=== PATIENT | female | born 2005 | race Caucasian/White ===

== ENCOUNTER 2023-08-21 14:51 | Outpatient (CLI) | payer MEDICAID, SELFPAY ==
--- NOTE | 2023-08-21 14:57 | US_ITS ---
WS: [id number] LIMITED OBSTETRICAL ULTRASOUND HISTORY: SUPERVISION OF 1ST -SECOND TRIMESTER/DATING COMPARISON: None available. Presentation: Breech. Cervix: Closed and normal length. Placenta: Anterior, no previa or abruption. Grade: 0 HEART: FHR of 150 BPM. measurements: BPD = 3.8 cm = 17w4d; HC = 13.7 cm = 17w1d; AC = 11.4 cm = 17w2d; FL = 2.2 cm = 16w5d; Normal amniotic fluid. EFW: 178.2 g; 64.1 % AGA by ultrasound: 17w1d ARSENIO by ultrasound: 01/28/2024 US/US OB limited [id number] IMPRESSION: 1. Single intrauterine gestation of 17w1d with an ARSENIO of 01/28/2024. 2. Normal cardiac activity.
== END 2023-08-21 14:52 | disposition home or self-care (01) ==
LOC: RAD 14:51
PROVIDERS: PCP Family Medicine; Visit Provider Family Medicine
DX: Z34.02 Encounter for supervision of normal first pregnancy, second trimester (principal); Z3A.17 17 weeks gestation of pregnancy
CPT/HCPCS: 76815

== ENCOUNTER 2023-09-11 12:00 | Outpatient (CLI) | payer MEDICAID, SELFPAY ==
--- NOTE | 2023-09-11 12:02 | USR_ITS ---
PROCEDURE INFORMATION: Exam: US After First Trimester, Transabdominal Exam date and time: 09/11/2023 12:23 PM Age: 18 years old Clinical indication: Screening exam; Routine US, uterus; Additional info: Anatomy check/second trimester LABS AND CLINICAL REPORTS: Gestational age (Established): 19 w 5 d Estimated due date (Established): 01/31/2024 TECHNIQUE: Imaging protocol: Real-time transabdominal obstetrical ultrasound of the maternal pelvis and a second or third trimester with image documentation. COMPARISON: US OB limited [id number] 08/21/2023 3:13 PM FINDINGS: Gestation: Single viable IUP heart rate: 145 bpm presentation and position: Breech Placenta: Unremarkable. No subchorionic bleed. Placenta is anterior. Amniotic fluid (Qualitative): Amniotic fluid is normal for gestational age. Amniotic fluid index: ANN is 12.96 cm. ANATOMY: midline falx: Normal cerebellum: Normal lateral ventricles: Normal cisterna magna: Normal choroid plexus: Normal face: Upper lip is normal heart four-chamber view, heart size and position: Normal heart right ventricular outflow tract: Normal heart left ventricular outflow tract: Normal kidneys: Normal stomach: Normal urinary bladder: Normal spine: Normal Umbilical cord and insertion: Unremarkable. upper limbs: Normal lower limbs: Normal external genitalia: Normal BIOMETRY: Gestational age (AUA): 19 weeks 5 days Estimated due date (AUA): 01/31/2024 Estimated weight: 317.4 g. EFW by AC, BPD, FL, HC, [place] 1985 54th percentile Biparietal diameter (BPD): 4.43 cm. EGA (BPD) is 19 w 3 d. 36.2 % percentile Head circumference (HC): 16.85 cm. EGA (HC) is 19 w 3 d. 31.8 % percentile Abdominal circumference (AC): 14.79 cm. EGA (AC) is 20 w 0 d. 56.8 % percentile Femur length (FL): 3.14 cm. EGA (FL) is 19 w 5 d. 43.9 % percentile HC/AC: 1.14. (Normal range: 1.08 - 1.26) FL/HC: 18.64. (Normal range: 16.6 - 19.37) FL/BPD: 70.88 FL/AC: 21.23 MATERNAL: Uterus: Unremarkable. Cervix: Cervical length is normal. Cervical os is closed. Right ovary/adnexa: Obscured by lack of adequate acoustic window. Left ovary/adnexa: Obscured by lack of adequate acoustic window. Intraperitoneal space: No intraperitoneal free fluid. US/US OB >= 14 weeks fetus [id number] IMPRESSION: Viable IUP at 19 weeks 5 days. No worrisome abnormality noted.
== END 2023-09-11 12:01 | disposition home or self-care (01) ==
LOC: RAD 12:00
PROVIDERS: PCP Family Medicine; Visit Provider Family Medicine
DX: Z36.2 Encounter for other antenatal screening follow-up (principal)
CPT/HCPCS: 76805

== ENCOUNTER 2023-11-10 15:38 | Outpatient (CLI) | payer MEDICAID, SELFPAY ==
[2023-11-10 15:49] VITALS: BP 118/75; PULSE 101; RESP 16; TEMP 36.4
[2023-11-10 16:01] VITALS: BMI 27.4
[2023-11-10 16:04] VITALS: BP 120/72; PULSE 97; RESP 16
[2023-11-10 16:20] VITALS: BP 124/77; PULSE 102
[2023-11-10 16:34] VITALS: BP 118/73; PULSE 102
[2023-11-10 16:51] VITALS: BP 125/63; PULSE 109
[2023-11-10 17:04] VITALS: BP 125/66; PULSE 95
== END 2023-11-10 17:19 | disposition home or self-care (01) ==
LOC: OPOB 15:46 → OBGYN 15:46
PROVIDERS: PCP Family Medicine; Visit Provider Family Medicine
DX: O26.899 Other specified pregnancy related conditions, unspecified trimester (principal); Z3A.00 Weeks of gestation of pregnancy not specified; R10.9 Unspecified abdominal pain; Z91.81 History of falling
CPT/HCPCS: 59025; 99211

== ENCOUNTER 2023-12-24 14:55 | Outpatient (CLI) | payer MEDICAID, SELFPAY ==
[2023-12-24] VITALS (14 sets, daily range): BP systolic 96–123; BP diastolic 52–81; PULSE 78–104; RESP 16; TEMP 36.7; BMI 28.3
[2023-12-24 15:38] LABS: Bilirubin Urine Negative (Negative); Blood Urine Negative (Negative); Glucose Urine UA Negative (Normal); Ketones Urine 1+ (Negative); Leukocyte Esterase Urine 1+ (Negative); Nitrate Urine Negative (Negative); Protein Urine Negative (Negative); Specific Gravity, Urine 1.015 (1.005-1.030); Urine Appearance Clear (CLEAR); Urobilinogen Urine 0.2 mg/dL (Negative); pH Urine 6.5 (5-7)
[2023-12-24 15:40] LABS: Bacteria Urine 1+ /hpf; Hyaline Casts Urine 2.05 /lpf; WBC Urine 21-50 /hpf (0-5)
[2023-12-24 15:45] LABS: Urine Color Yellow (Yellow)
[2023-12-24 15:46] LABS: Add Urine Culture? Yes
[2023-12-24] MEDS: ondansetron 2 mg/ML SDV 2 mL 4 MG IVP (17:51)
[2023-12-24] MEDS: lactated ringers 1,000 ML 999 ML IV (17:51)
--- NOTE | 2023-12-24 18:36 | PM.OBTRLD ---
OB L&D Triage Visit Information: Date of evaluation: 12/24/23 Comments/Additional reason(s) for visit: 18 yo at 34w4d presenting for contractions. Started yesterday while out at a christian event and were very irregular and mild. Continued irregularly overnight but she was able to sleep. This morning increased some at about 8:30am and started tracking them. Increased to about every 3-5 minutes and so she called the office to see if she needed to come in. This morning pain was 3-4/10 and is now 8-9/10. course has been uncomplicated other than influenza B infection about 2 weeks ago. Denies LOF, vaginal bleeding, no change in vaginal discharge. Good movement. She does report some nausea but otherwise has been feeling her normal self. Denies fevers. Reports she had fully recovered from influenza B symptoms. Evaluation: Baseline heart rate: 135 Variability: Moderate (11-25) monitor accelerations: Present 15x15 station: -2 Laboratory results: Laboratory Tests 12/24/23 15:15 Urine Color Yellow Urine Appearance Clear Urine pH 6.5 Ur Specific Gravit y 1.015 Urine Protein Negative Urine Glucose (UA) Negative Urine Ketones 1+ H Urine Blood Negative Urine Nitrate Negative Urine Bilirubin Negative Urine Urobilinogen 0.2 Ur Leukocyte Lily ase 1+ A Urine RBC 3-5 Urine WBC 21-50 H Ur Squamous Epith Cells 6-10 Amorphous Sediment Not Reportable Urine Bacteria 1+ H Hyaline Casts 2.05 Vital signs: Vital Signs - 24 hr 12/24/23 15:13 12/24/23 15:34 12/24/23 15:34 Pulse Rate 104 H 78 Blood Pressure 109/69 97/56 12/24/23 15:54 12/24/23 15:54 12/24/23 16:15 Pulse Rate 82 Blood Pressure 118/72 97/52 12/24/23 16:15 12/24/23 16:33 12/24/23 16:33 Pulse Rate 78 93 Blood Pressure 123/81 12/24/23 16:54 12/24/23 16:54 12/24/23 17:19 Pulse Rate 101 H Blood Pressure 117/74 114/64 12/24/23 17:19 12/24/23 17:33 12/24/23 17:33 Pulse Rate 96 98 Blood Pressure 122/74 12/24/23 17:53 12/24/23 17:53 12/24/23 18:13 Pulse Rate 81 Blood Pressure 102/67 103/59 12/24/23 18:13 12/24/23 18:34 12/24/23 18:34 Pulse Rate 83 90 Blood Pressure 99/63 Coding Level of Care Code Acute Code for Chg Fwd
== END 2023-12-24 19:15 | disposition home or self-care (01) ==
LOC: OPOB 15:01 → OBGYN 15:01
PROVIDERS: PCP Family Medicine; Visit Provider Family Medicine
DX: O26.899 Other specified pregnancy related conditions, unspecified trimester (principal); Z3A.00 Weeks of gestation of pregnancy not specified; R10.9 Unspecified abdominal pain
CPT/HCPCS: 59025; 81001; 87086; 99211; J2405; J7120

== ENCOUNTER 2023-12-29 17:55 | Outpatient (CLI) | payer MEDICAID, SELFPAY ==
[2023-12-29 17:55] VITALS: BMI 28.9
[2023-12-29 18:09] VITALS: BP 118/78; PULSE 94
[2023-12-29 18:24] VITALS: BP 106/68; PULSE 91
[2023-12-29 18:27] LABS: Bilirubin Urine Negative (Negative); Blood Urine Negative (Negative); Glucose Urine UA 3+ (Normal); Ketones Urine Trace (Negative); Leukocyte Esterase Urine Negative (Negative); Nitrate Urine Negative (Negative); Protein Urine Trace (Negative); Urine Appearance Clear (CLEAR); Urine Color Yellow (Yellow)
[2023-12-29 18:32] LABS: Actim Prom Negative; Add Urine Microscopic? YES
[2023-12-29 18:33] LABS: Specific Gravity, Urine 1.034 (1.005-1.030); UA Slide Review UA Slide Review Perf
[2023-12-29 18:40] VITALS: BP 106/75; PULSE 105
[2023-12-29 18:42] LABS: UA Manual Slide Review YES
[2023-12-29 18:43] LABS: Bacteria Urine TRACE /hpf; Calcium Oxalate Crystals Urine 15-25 /hpf; Hyaline Casts Urine 0-4 /lpf; Mucus Urine TRACE /hpf; RBC Urine 0-4 /hpf (0-2); Transitional Epi Cells Urine 0-4 /hpf; WBC Urine 0-4 /hpf (0-5)
[2023-12-29 18:44] LABS: Add Urine Culture? No
[2023-12-29 18:53] VITALS: BP 106/75; PULSE 105
[2023-12-29 19:12] LABS: Nitrazine Paper, PH Negative
== END 2023-12-29 18:53 | disposition home or self-care (01) ==
LOC: OPOB 18:01 → OBGYN 18:02
PROVIDERS: PCP Family Medicine; Visit Provider Family Medicine
DX: O26.899 Other specified pregnancy related conditions, unspecified trimester (principal); Z3A.00 Weeks of gestation of pregnancy not specified; N89.8 Other specified noninflammatory disorders of vagina
CPT/HCPCS: 59025; 81001; 83986; 84112; 99211

== ENCOUNTER 2024-01-06 18:09 | Outpatient (CLI) | payer MEDICAID, SELFPAY ==
[2024-01-06 18:26] VITALS: BP 129/78; PULSE 97
[2024-01-06 18:33] VITALS: RESP 16; BMI 29.6
[2024-01-06 18:41] VITALS: BP 107/69; PULSE 85
[2024-01-06 18:50] LABS: Nitrazine Paper, PH Negative
[2024-01-06 18:55] VITALS: BP 107/69; PULSE 81
[2024-01-06 19:10] VITALS: BP 112/72; PULSE 81
[2024-01-06 19:26] VITALS: BP 108/66; PULSE 82
== END 2024-01-06 20:00 | disposition home or self-care (01) ==
LOC: OPOB 18:15 → OBGYN 18:16
PROVIDERS: PCP Family Medicine; Visit Provider Family Medicine
DX: O26.899 Other specified pregnancy related conditions, unspecified trimester (principal); Z3A.00 Weeks of gestation of pregnancy not specified; R10.9 Unspecified abdominal pain
CPT/HCPCS: 59025; 83986; 99211

== ENCOUNTER 2024-01-18 17:35 | Outpatient (CLI) | payer MEDICAID, SELFPAY ==
[2024-01-18 17:35] VITALS: BMI 30.2
[2024-01-18 18:01] VITALS: BP 132/82; PULSE 93
[2024-01-18 18:16] VITALS: BP 126/85; PULSE 90
[2024-01-18 18:24] LABS: Actim Prom Negative
[2024-01-18 18:31] VITALS: BP 119/77; PULSE 88
[2024-01-18 18:33] VITALS: BP 119/77; PULSE 88
== END 2024-01-18 18:34 | disposition home or self-care (01) ==
LOC: OPOB 17:48 → OBGYN 17:48
PROVIDERS: PCP Family Medicine; Visit Provider Family Medicine
DX: O26.899 Other specified pregnancy related conditions, unspecified trimester (principal); Z3A.00 Weeks of gestation of pregnancy not specified; N89.8 Other specified noninflammatory disorders of vagina
CPT/HCPCS: 59025; 83986; 84112; 99211

== ENCOUNTER 2024-01-24 16:40 | Outpatient (CLI) | payer MEDICAID, SELFPAY ==
[2024-01-24 17:10] LABS: Actim Prom Negative
[2024-01-24 17:20] VITALS: RESP 16
== END 2024-01-24 17:21 | disposition home or self-care (01) ==
LOC: OPOB 16:42 → OBGYN 16:43
PROVIDERS: PCP Family Medicine; Visit Provider Family Medicine
DX: O26.899 Other specified pregnancy related conditions, unspecified trimester (principal); Z3A.00 Weeks of gestation of pregnancy not specified; N89.8 Other specified noninflammatory disorders of vagina
CPT/HCPCS: 59025; 84112; 99211

== ENCOUNTER 2024-01-25 02:30 | Inpatient (IN) | payer MEDICAID, SELFPAY ==
[2024-01-25] VITALS (57 sets, daily range): BP systolic 112–146; BP diastolic 57–104; PULSE 68–141; RESP 16–18; TEMP 36–37.2; O2SAT 98–99; BMI 30.9
[2024-01-25 02:35] LABS: Basophils # 0.1 10^3/uL (0.0-0.1); Basophils % 0.3 %; Eosinophils # 0.2 10^3/uL (0.0-0.8); Eosinophils % 1.4 %; Hematocrit 35.1 % (36-47); Lymphocytes # 3.2 10^3/uL (1.5-6.5); Lymphocytes % 21.7 %; Mean Corpuscular HGB Conc 32.2 g/dL (30-55); Mean Corpuscular Hemoglobin 26.7 pg (27-33); Mean Platelet Volume 10.1 fL (7.4-10.4); Monocytes % 7.1 %; Neutrophils # 9.93 10^3/uL (1.8-8.0); Neutrophils % 68.2 %; Nucleated Red Blood Cells % 0 %; Platelet Count 222 10^3/cmm (157-399); Red Blood Count 4.23 10^6/uL (3.85-5.65); Red Cell Distribution Width 14.1 % (12.1-15.1); White Blood Count 14.58 10^3/uL (4.5-13.0)
[2024-01-25] MEDS: acetaminophen 325 mg Tablet 650 MG PO (05:34)
--- NOTE | 2024-01-25 07:21 | P.HP_ITS ---
Providers/Chief Complaint 2 Admitting Physician: Ashley Cartagena DO Primary Care Provider: Ashley Cartagena DO Chief Complaint: Poss. SROM HPI CONSERVATION OR HERITAGE ARCHITECT History of Present Illness Lois Richey is a 18 year old female at 39w1d by sure LMP c/w 16wk US without significant PMHx presenting for for SROM at home at 11:58pm. States she woke up having to pee and got up to go the bathroom and after she peed she had a large gush of fluid and continued with gushes while walking back to the bed. Reports occasional contractions prior to arrival, denies vaginal bleeding, normal movement course uncomplicated. Present Details : 1 Para: 0 Labs Blood type OB HPI: O (+) positive Rubella: Immune RPR: Negative GBS: Negative HBsAG: Negative Other Lab Information: HCV Ab negative HIV NR Chlamydia/Gonorrhea negative Initial H/H 13.3/38.9 Hemoglobin A1c 5.0 UCx with lactobacillus- repeat wnl 1hr GTT passed- 139 3rd trimester H/H 12.1/35.3 Review of Systems 2 Const: Denies: fever(s) or chills Card: Denies: chest pain or palpitations Resp: Denies: dyspnea or productive cough Skin/Breast: Denies: rash or pruritus Medications/Allergies Home Medications Medication Instructions Recorded Confirmed Last Taken Type vit no.133-ferrous 1 tab PO DAILY 01/18/24 01/25/24 01/24/24 History fumarate 28 mg-folic acid 800 mcg tablet () Allergies Allergy/AdvReac Type Severity Reaction Status Date / Time nicotine Allergy Unknown ADR-Itching Verified 01/25/24 02:00 Penicillins Allergy HIVES Verified 01/25/24 02:00 PFSH CONSERVATION OR HERITAGE ARCHITECT 2 PFSH: Social History Smoking and tobacco/nicotine status: never used tobacco/nicotine History History History 2 1 Term 0 0 Miscarriages/Ectopic 0 Living Children 0 Vitals/I&O/Wt Last Vital Signs Temp 97.9 F 01/25/24 06:07 Pulse 76 01/25/24 06:23 BP 125/87 01/25/24 06:23 O2 Del Method Room Air 01/25/24 03:04 Weight last 48 hrs Weight 169 lb Physical Exam 2 Const: COMMON NORMALS: no acute distress, healthy appearing and alert Resp: COMMON NORMALS: normal respiratory effort, No retractions and clear to auscultation bilaterally Cardio: COMMON NORMALS: regular rate, regular rhythm, S1 normal heart sound present, S2 normal heart sound present and No murmurs present (Cardio) : OTHER: Gravid S=D Vertex on admission per RN Extremity: NARRATIVE EXTREMITY EXAM: Trace LE edema pitting Data 01/25/24 02:17 Results Labs OB ([facility]): 2 Obstetrics US 08/21/23 Blood Type O Positive 01/25/24 Antibody Screen Negative 01/25/24 Hct 35.1 % (36-47) L 01/25/24 Hgb 11.30 g/dL (12.4-14.8) L 01/25/24 Rho(D) Type Rh positive 01/25/24 Plt Count 222 10^3/cmm (157-399) 01/25/24 Micro Urine Specimen 12/24/23 A&P Assessment and plan (1) Spontaneous rupture of amniotic membranes: Plan 18yo at 39w1d admitted for SROM at term. Category I FHT. Routine CBC, Blood typing. Intermittent EFM as long as Category I. Expectant management at this time- discussed SROM with patient and monitoring for progressive dilation and effacement. Consider addition of Pitocin augmentation if labor progress slows. Initially has made change from 2/75/0 to 3/80/0. May have epidural if desired, fentanyl protocol. Attestations 2 Medical Necessity Statement*: Lois Richey's hospital stay will require greater than 2 midnights for labor and delivery and care. Coding Level of Care Code Acute Code for Chg Fwd Diagnoses Spontaneous rupture of amniotic membranes
[2024-01-25] MEDS: fentaNYL 50 mcg/mL INJ 2mL IVP ×2 (10:52→12:45)
--- NOTE | 2024-01-25 22:08 | P.PCNOB_ITS ---
Delivery Note: Date of delivery: January 25, 2024 Pre-delivery diagnoses: Spontaneous Rupture of Membranes Term Post-delivery diagnoses: Term delivery of viable male Procedure: Spontaneous Vaginal Delivery Delivering Physician: Ashley Cartagena DO Estimated blood loss (mL): 200 Pre-Delivery Course: Admitted for SROM at 11:58 pm on 01/24/24 at home. She was expectantly managed with Category I FHT throughout. She coped well with pain and received 2 doses of fentanyl for pain control. She progressed steadily to complete at 3:48pm on 01/25/24. Delivery: Patient progressed to complete. Patient placed in lithotomy position. Patient pushed with adequate effort however with very slow descent. After approximately 3 hours of pushing, due to maternal fatigue, discussion regarding vacuum assisted delivery began. Informed consent provided and patient requested vacuum assistance. Peds broadcast operations engineer and back-up- Dr. Haskins was called and began en route. Category I FHT was noted to continue. At 1947 vacuum was applied with noted descent with each push. Subsequently vacuum popped off 3 different times and vacuum was discontinued at 1952. Noted to continue with category I FHT and patient continued to push. Head delivered in OA position, no nuchal cord was present. Shoulders delivered easily and rest of body delivered with gentle traction with no anesthesia. Mouth and nares bulb suctioned. placed on maternal abdomen. noted to be vigorous with spontaneous cry with routine stimulation. Cord clamped and cut after 1.5 minute delay. Placenta spontaneously delivered and noted to be intact. Pitocin started. Fundus was noted to be firm with massage. The vagina and cervix were inspected and midline 2nd degree continuous with bilateral 1st degree labial lacerations were noted. Left labial 1st degree and 2nd degree lacerations repaired with 3-0 Vicryl. Right labial laceration noted to be hemostatic and patient declined repair. Fundus was again noted to be firm. Male born at 2107 with Apgars 7/9 weighing 9lb 14oz and measuring 21.5 in length, 14.25 in head circumference, 15.25 chest circumference Placenta noted to be intact with centrally inserted umbilical cord and 3 vessels Complications: Maternal none none History History History 1 Term 0 0 Miscarriages/Ectopic 0 Living Children 0 A&P Assessment and plan (1) Spontaneous vaginal delivery: Coding Level of Care Code Acute Code for Chg Fwd Diagnoses Spontaneous vaginal delivery O80
[2024-01-25] MEDS: calcium carbonate 500 mg Chew Tablet 1000 MG PO (23:00)
[2024-01-26] VITALS (23 sets, daily range): BP systolic 101–133; BP diastolic 61–82; PULSE 96–129; RESP 13–17; TEMP 36.6–37.2; O2SAT 98–100
[2024-01-26] MEDS: oxytocin 30 UNIT/500 ML BAG 600 UNIT IV (01:00)
[2024-01-26] MEDS: dextrose 5%-lactated ringers 1,000 ML 125 ML IV (01:00)
--- NOTE | 2024-01-26 07:00 | PM.OBGYPN ---
SPECIAL SERVICES DIRECTOR Subjective Subjective: Interval history: Doing well overnight. Bleeding has been decreasing. Very sore, but overall pain well controlled. She is not wanting to take pain medication if she can avoid it but does hurt to move much. Has voided without issue. Was able to eat last night without issue. Labor: Station: +1 Amniotic Membrane Status: Ruptured Monitor Mode: Palpation Contraction Pattern: Regular Vitals/I&O/Wt Last Vital Signs Temp 97.8 F 01/27/24 20:55 Pulse 96 01/27/24 20:55 Resp 16 01/27/24 20:55 BP 139/79 01/27/24 20:55 Pulse Ox 99 01/27/24 20:55 O2 Del Method Room Air 01/27/24 20:50 Physical Exam Const: COMMON NORMALS: no acute distress, healthy appearing and alert Resp: COMMON NORMALS: normal respiratory effort, No retractions and clear to auscultation bilaterally AUSCULTATION: clear to auscultation bilaterally Cardio: COMMON NORMALS: regular rate, regular rhythm, S1 normal heart sound present, S2 normal heart sound present and No murmurs present (Cardio) RATE: regular rate RHYTHM: regular rhythm HEART SOUNDS: S1 normal heart sound present and S2 normal heart sound present : OTHER: Uterine fundus firm and at the umbilicus Extremity: NARRATIVE EXTREMITY EXAM: Trace LE edema pitting Neuro: SENSORIUM/ORIENTATION: Yes alert Data 01/26/24 09:25 A&P Assessment and plan (1) Spontaneous vaginal delivery: PPD#1 s/p vacuum assisted vaginal delivery. Encourage ambulation. Routine H/H today. Normal diet. Scheduled ibuprofen with tylenol PRN. Attestations Medical Necessity Statement*: Lois Richey's hospital stay will require greater than 2 midnights for labor and delivery and care. Coding Level of Care Code Acute Code for Chg Fwd Diagnoses Spontaneous vaginal delivery O80
--- NOTE | 2024-01-26 07:04 | PM.OBGYPN ---
RIVETER PNEUMATIC Subjective Labor: Station: +1 Amniotic Membrane Status: Ruptured Monitor Mode: Palpation Contraction Pattern: Regular Vitals/I&O/Wt Last Vital Signs Temp 98.9 F 01/26/24 06:00 Pulse 110 H 01/26/24 06:00 Resp 16 01/26/24 06:00 BP 118/78 01/26/24 06:00 Pulse Ox 99 01/26/24 00:23 O2 Del Method Room Air 01/25/24 03:04 01/25/24 01/26/24 01/26/24 22:59 06:59 14:59 Intake Total 500 / 500 Balance 500 / 500 Weight last 48 hrs Weight 169 lb Data 01/26/24 09:25 Attestations Medical Necessity Statement*: Lois Richey's hospital stay will require greater than 2 midnights for labor and delivery and care. Coding Level of Care Code Acute Code for Chg Fwd
[2024-01-26] MEDS: ibuprofen 800 mg tablet PO ×3 (09:11→20:52)
[2024-01-26] MEDS: PRENATAL VIT NO.130/IRON/FOLIC 1 EACH TABLET PO (09:11)
[2024-01-26 09:37] LABS: Hematocrit 29.5 % (36-47); Mean Corpuscular HGB Conc 32.5 g/dL (30-55); Mean Corpuscular Hemoglobin 26.7 pg (27-33); Mean Corpuscular Volume 82.2 fl (85-98); Mean Platelet Volume 10.1 fL (7.4-10.4); Platelet Count 217 10^3/cmm (157-399); Red Blood Count 3.59 10^6/uL (3.85-5.65); Red Cell Distribution Width 14.5 % (12.1-15.1); White Blood Count 25.79 10^3/uL (4.5-13.0)
--- NOTE | 2024-01-26 09:43 | PC.NURSE ---
This nurse called Dr. Cartagena on 01/26/24 @5280 to let her know pt lab results, physical assessment, and that pt had a high HR. She gave orders to recheck pulse in 1hr and have pt PO hydrate.
[2024-01-27] MEDS: ibuprofen 800 mg tablet PO ×2 (08:38→20:48)
[2024-01-27] MEDS: PRENATAL VIT NO.130/IRON/FOLIC 1 EACH TABLET PO (08:38)
[2024-01-27] MEDS: docusate sodium 100 mg Capsule PO ×2 (08:38→18:42)
[2024-01-27 10:30] VITALS: BP 111/70; PULSE 93; RESP 16; TEMP 36.6; O2SAT 99
[2024-01-27] MEDS: ferrous sulfate EC 325 mg Tablet PO (11:12)
--- NOTE | 2024-01-27 13:28 | PM.OBGYDC ---
Discharge Providers RADIOLOGY CLERK Date of Admission: 01/25/24 02:30 Date of Discharge: 01/29/24 Attending Provider at Admission: Ashley Cartagena DO Attending Provider at Discharge: Ashley Cartagena DO Primary Care Provider: Ashley Cartagena DO Diagnoses at Discharge Discharge Diagnosis (1) Vacuum extraction, delivered, current hospitalization: Status: Acute (2) Anemia: Status: Acute Reason for Visit Reason for Visit: Poss. SROM Hospital Course Hospital Course Pre-Delivery Course: Admitted for SROM at 11:58 pm on 01/24/24 at home. She was expectantly managed with Category I FHT throughout. She coped well with pain and received 2 doses of fentanyl for pain control. She progressed steadily to complete at 3:48pm on 01/25/24. Delivery: Patient progressed to complete. Patient placed in lithotomy position. Patient pushed with adequate effort however with very slow descent. After approximately 3 hours of pushing, due to maternal fatigue, discussion regarding vacuum assisted delivery began. Informed consent provided and patient requested vacuum assistance. Peds regional sales executive and back-up- Dr. Haskins was called and began en route. Category I FHT was noted to continue. At 1947 vacuum was applied with noted descent with each push. Subsequently vacuum popped off 3 different times and vacuum was discontinued at 1952. Noted to continue with category I FHT and patient continued to push. Head delivered in OA position, no nuchal cord was present. Shoulders delivered easily and rest of body delivered with gentle traction with no anesthesia. Mouth and nares bulb suctioned. placed on maternal abdomen. Infant noted to be vigorous with spontaneous cry with routine stimulation. Cord clamped and cut after 1.5 minute delay. Placenta spontaneously delivered and noted to be intact. Pitocin started. Fundus was noted to be firm with massage. The vagina and cervix were inspected and midline 2nd degree continuous with bilateral 1st degree labial lacerations were noted. Left labial 1st degree and 2nd degree lacerations repaired with 3-0 Vicryl. Right labial laceration noted to be hemostatic and patient declined repair. Fundus was again noted to be firm. Male born at 2107 with Apgars 7/9 weighing 9lb 14oz and measuring 21.5 in length, 14.25 in head circumference, 15.25 chest circumference Placenta noted to be intact with centrally inserted umbilical cord and 3 vessels Complications: Maternal none none course: Patient underwent vacuum assisted vaginal delivery on 01/25/24. course was uncomplicated. Following delivery patient ambulated well, tolerated a normal diet without nausea or vomiting. Pain was well on PO medications, well exclusively, no leg/calf pain, no calf/leg swelling, normal urination, passing gas and normal bowel movements. Vaginal bleeding thin lochia and decreasing. labs significant for hemoglobin of 9.6g/dL down from 11.3g/dL on admission. She is started on iron supplementation once daily and will be continued on this at home on discharge. Follow-up planned for 2 and 6 weeks . Warning signs for endometritis, pre-eclampsia, DVT/PE, mastitis were reviewed, discussed additional warning signs including increased vaginal bleeding, worsening abdominal pain. Pelvic rest and activity precautions reviewed as well. She is discharged on 01/27/24 in stable condition. Information Peripartum Data: Delivery Method: Vaginal Physical Exam Const: COMMON NORMALS: no acute distress, healthy appearing and alert Resp: COMMON NORMALS: normal respiratory effort, No retractions and clear to auscultation bilaterally AUSCULTATION: clear to auscultation bilaterally Cardio: COMMON NORMALS: regular rate, regular rhythm, S1 normal heart sound present, S2 normal heart sound present and No murmurs present (Cardio) RATE: regular rate RHYTHM: regular rhythm HEART SOUNDS: S1 normal heart sound present and S2 normal heart sound present : OTHER: Uterine fundus firm and at the umbilicus Extremity: NARRATIVE EXTREMITY EXAM: Trace LE edema pitting Neuro: SENSORIUM/ORIENTATION: Yes alert History History History 1 Term 1 0 Miscarriages/Ectopic 0 Living Children 1 Discharge Data Studies Completed and Pending Laboratory Results WBC 25.79 10^3/uL (4.5-13.0) H 01/26/24 09:25 RBC 3.59 10^6/uL (3.85-5.65) L 01/26/24 09:25 Hgb 9.60 g/dL (12.4-14.8) L 01/26/24 09:25 Hct 29.5 % (36-47) L 01/26/24 09:25 MCV 82.2 fl (85-98) L 01/26/24 09:25 MCH 26.7 pg (27-33) L 01/26/24 09:25 MCHC 32.5 g/dL (30-55) 01/26/24 09:25 RDW 14.5 % (12.1-15.1) 01/26/24 09:25 Plt Count 217 10^3/cmm (157-399) 01/26/24 09:25 MPV 10.1 fL (7.4-10.4) 01/26/24 09:25 Neut % (Auto) 68.2 % 01/25/24 02:17 Lymph % (Auto) 21.7 % 01/25/24 02:17 Parke % (Auto) 7.1 % 01/25/24 02:17 Eos % (Auto) 1.4 % 01/25/24 02:17 Baso % (Auto) 0.3 % 01/25/24 02:17 Neut # (Auto) 9.93 10^3/uL (1.8-8.0) H 01/25/24 02:17 Lymph # (Auto) 3.2 10^3/uL (1.5-6.5) 01/25/24 02:17 Parke # (Auto) 1.0 10^3/uL (0.2-0.9) H 01/25/24 02:17 Eos # (Auto) 0.2 10^3/uL (0.0-0.8) 01/25/24 02:17 Baso # (Auto) 0.1 10^3/uL (0.0-0.1) 01/25/24 02:17 Nucleated RBC % (auto) 0 % 01/25/24 02:17 Nucleated RBCs # 0.0 /100WBC 01/25/24 02:17 Blood Type O Positive 01/25/24 02:17 Rho(D) Type Rh positive 01/25/24 02:17 Antibody Screen Negative 01/25/24 02:17 Vitals Last Vital Signs Temp 97.9 F 01/26/24 20:53 Pulse 107 H 01/26/24 20:53 Resp 16 01/26/24 20:53 BP 102/69 01/26/24 20:53 Pulse Ox 98 01/26/24 16:45 O2 Del Method Room Air 01/26/24 20:53 Results Labs OB ([facility]): Obstetrics US 08/21/23 Blood Type O Positive 01/25/24 Antibody Screen Negative 01/25/24 Hct 29.5 % (36-47) L 01/26/24 Hgb 9.60 g/dL (12.4-14.8) L 01/26/24 Rho(D) Type Rh positive 01/25/24 Plt Count 217 10^3/cmm (157-399) 01/26/24 Micro Urine Specimen 12/24/23 Discharge Plan Discharge Patient Disposition: Home Condition: Stable Prescriptions: New ibuprofen 800 mg Tablet 800 mg PO TID Qty: 60 0RF docusate sodium 100 mg Capsule 100 mg PO BID Qty: 60 0RF ferrous sulfate 325 mg (65 mg iron) Tablet,Delayed Release (Dr/Ec) 325 mg PO BREAKFAST Qty: 90 0RF Continued 28-800 mg-mcg Tablet 1 tab PO DAILY Discharge Orders: Discharge Order (Routine); Ordered 01/27/24 Ordered By: Ashley Cartagena Referrals: Ashley Cartagena DO [Primary Care Provider] - 02/09/24 1:00 pm (Your [address] Cartagena is March at 2:45 p.m.) Patient Instructions: Depression (DC), Perineal Care (DC), Expression, Collection and Storage of Breast Milk (DC), and Nipple Soreness (DC), and Breast Engorgement (DC), and Plugged Ducts (DC), How to Increase Your Milk Supply (DC), Bleeding (DC), Preeclampsia and Eclampsia After Delivery (GEN), Perineal Tear with Delivery (DC), Breast Care for the Mother (DC), OB Discharge Report, OB Food/Drug Interaction Guide, Opioid Safety, OB Home Care, OB Vaginal Deliveries Activity Restrictions/Additional Instructions: Pelvic rest for 6 weeks Follow-up with Dr. Cartagena at [facility] at 2 and 6 weeks Discharge Attestations RADIOLOGY CLERK Time Spent in Discharge Care*: less than 30 min Coding Level of Care Code Acute Code for Chg Fwd Diagnoses Vacuum extraction, delivered, current hospitalization O75.9 Anemia D64.9
[2024-01-27 17:00] VITALS: BP 103/69; PULSE 89; RESP 18; TEMP 36.6; O2SAT 97
[2024-01-27 20:50] VITALS: BP 139/79; PULSE 96; RESP 16; TEMP 36.6; O2SAT 99
[2024-01-27 20:55] VITALS: BP 139/79; PULSE 96; RESP 16; TEMP 36.6; O2SAT 99
== END 2024-01-27 20:55 | disposition home or self-care (01) | DRG 807 ==
LOC: OPOB 02:30 → OBGYN 02:30
PROVIDERS: Admitting Provider Family Medicine; PCP Family Medicine; Visit Provider Family Medicine
DX: O70.1 Second degree perineal laceration during delivery (principal); Z37.0 Single live birth; Z3A.39 39 weeks gestation of pregnancy; O90.81 Anemia of the puerperium
CPT/HCPCS: 36415; 59025; 59409; 85025; 85027; 86850; 86900; 96374; 96376; 99211; J2590; J3010; J7121